=== PATIENT | female | born 1950 | race Caucasian/White ===

== ENCOUNTER 2018-09-03 06:24 | Day surgery (SDC) | payer MEDICARE, OTHER ==
[~2018-09-03] VITALS: Ht 152.4 cm; Wt 58.0 kg
[~2018-09-03 06:24] MED LIST: AMI25 PO; LORA-441 PO; METO-53 PO; METO100T PO; OMEPRAZOLE PO; ZOLP10TA PO
[2018-09-03] MEDS ORDERED: LEVOTHYROXINE (08:39)
[2018-09-03] MEDS ORDERED: GEMFIBROZIL (08:39)
[2018-09-03] MEDS ORDERED: CYCLOBENZAPRINE (08:39)
[2018-09-03] MEDS ORDERED: PANTOPRAZOLE (08:39)
[2018-09-03] MEDS ORDERED: METOPROLOL (08:39)
[2018-09-03] MEDS ORDERED: ATIVAN (08:39)
[2018-09-03 08:46] VITALS: BP 167/71; PULSE 84; RESP 20
[2018-09-03] MEDS ORDERED: LIDOCAINE 2% (SDV) 5 ML INJ ONE (08:49)
[2018-09-03] MEDS ORDERED: ETOMIDATE 20 MG INJ ONE (08:49)
[2018-09-03] MEDS ORDERED: PROPOFOL 40 ML ONE (08:49)
--- NOTE | 2018-09-03 09:40 | PREAC ---
Date/Time of Note Date/Time of Note DATE: 09/03/18 TIME: 08:45 Anesthesia Eval and Record Evaluation Time Pre-Procedure Interview DATE: 09/03/18 TIME: 08:45 Age 68 Sex female NPO: 8 hrs Preoperative diagnosis Abdominal pain Planned procedure EGD Colonoscopy Past Medical History Past Medical History: Includes Cardio: HTN, CAD Surgery & Anesthesia Issues No known issue Meds Anticoagulation: No Beta Melinda within 24 hr: No Reason Beta Melinda not given: COPD Reported Medications [Pantoprazole] No Conflict Check 09/03/18 [Gemfibrozil] No Conflict Check 09/03/18 [Ativan] No Conflict Check 09/03/18 [Cylcobenzaprine] No Conflict Check 09/03/18 [Levothyroxine] No Conflict Check 09/03/18 [Metoprolol] No Conflict Check 09/03/18 [Omeprazole] No Conflict Check, PO 10/20/14 Lorazepam* (Ativan*) 0.5 Mg Tablet, 0.5 MG PO TID 10/08/12 Amitriptyline Hcl* (Elavil*) 25 Mg Tab, 25 MG PO TID 10/08/12 Zolpidem Tartrate* (Ambien*) 10 Mg Tablet, 10 MG PO HS 10/08/12 Metoprolol (Lopressor) 100 Mg Tablet, 100 MG PO AM 10/08/12 Metoprolol (Lopressor) 50 Mg Tablet, 50 MG PO HS 10/08/12 Meds reviewed: Yes Allergies Coded Allergies: Penicillins (Verified Allergy, Intermediate, 10/08/12) Allergies Reviewed: Yes Labs/Studies Labs Reviewed: Reviewed by anesthesiologist test: N/A Pre-procedure Exam Airway: Adequate mouth opening Mallampati: Mallampati II Teeth: Abnormal Lung: Abnormal Heart: Abnormal (decreased exercise tolerance) ASA Physical Status ASA physical status: 3 Emergency: None Planned Anesthetic General/MAC: MAC Pre-operative Attestations Prior to commencing anesthesia and surgery, the patient was re-evaluated, there was verification of: *The patient's identity *The results of appropriate recent lab work and preoperative vital signs *The above evaluation not changing prior to induction *Anesthetic plan, risk benefits, alternative and complications discussed with patient/family; questions answered; patient/family understands, accepts and wishes to proceed. BRIANNA MCGEE MD Sep 03, 2018 09:40
--- NOTE | 2018-09-03 09:41 | PAC ---
Date/Time of Note Date/Time of Note DATE: 09/03/18 TIME: 09:40 Post-Anesthesia Notes Post-Anesthesia Note Activity: WNL Respiratory function: WNL Cardiovascular function: WNL Mental status: Baseline Pain reasonably controlled: Yes Hydration appropriate: Yes Nausea/Vomiting absent: Yes BRIANNA MCGEE MD Sep 03, 2018 09:40
[2018-09-03 09:46] VITALS: BP 119/68; PULSE 79; RESP 16
[2018-09-03 09:50] VITALS: BP 141/63; PULSE 70; RESP 17
[2018-09-03 09:55] VITALS: BP 147/66; PULSE 68; RESP 17
[2018-09-03 10:00] VITALS: BP 147/65; PULSE 68; RESP 14
[2018-09-03 10:05] VITALS: BP 143/65; PULSE 68; RESP 15
== END 2018-09-03 15:44 | disposition home or self-care (01) ==
LOC: GIL 06:24
PROVIDERS: ATTEND Internal Medicine Gastroenterology
DX: R19.4 Change in bowel habit (principal); K64.8 Other hemorrhoids; K57.30 Diverticulosis of large intestine without perforation or abscess without bleeding; K29.50 Unspecified chronic gastritis without bleeding; I25.10 Atherosclerotic heart disease of native coronary artery without angina pectoris; I10 Essential (primary) hypertension
CPT/HCPCS: 88305; 88312